=== PATIENT | female | born 1970 | race Caucasian/White ===

== ENCOUNTER → 2024-01-22 08:23 | Outpatient (BNVA) | payer MEDICARE, MEDICAID, SELFPAY | PROVIDERS: Family Provider Surgery Plastic and Reconstructive Surgery; Visit Provider Student in an Organized Health Care Education/Training Program | DX: K46.9 Unspecified abdominal hernia without obstruction or gangrene (principal) | CPT/HCPCS: 99204 ==

== ENCOUNTER 2024-02-05 08:54 | Outpatient (CLI) | payer MEDICARE, MEDICAID, SELFPAY ==
--- NOTE | 2024-02-05 09:00 | CT_ITS ---
WS: [id number] CT ABDOMEN AND PELVIS WITH CONTRAST HISTORY: hernia TECHNIQUE: Imaging performed of the abdomen and pelvis with IV contrast. Single phase imaging of the abdomen. Coronal and sagittal reformats are submitted. All CT scans at [facility] use at [address] one of these dose optimization techniques: automated exposure control; mA and/or kV adjustment per patient size (includes targeted exams where dose is matched to clinical indication); or iterative re construction. IV CONTRAST: Omnipaque 350; 100 mL IV. Oral contrast: No DLP: 549.29 mGy.cm COMPARISON: 07/05/2015 Lower thorax: Lung bases are clear. Posterior RIGHT diaphragmatic hernia contains fat only. Heart is normal size. No hiatal hernia. Liver/biliary system: Normal size liver. There are 2 low-attenuation masses within the liver which ca nnot be further characterized. These were not present on the prior study and limited otherwise by jackie athing motion artifact. Suspect cysts or hemangiomas. Gallbladder: Normal. No gallstones or wall thickening. No pericholecystic fluid. Pancreas: Normal size pancreas and pancreatic duct. No adjacent inflammation. Spleen: Normal size spleen. No mass or infarct. Adrenal glands: Normal. Right kidney: Normal size kidney. Focal cortical scar posterior upper pole. No obstruction. Left kidney: Normal. Aorta: Normal. Lymphadenopathy: None. Free fluid: None. GI tract: Nondistended stomach. No small bowel obstruction. Mild diffuse constipation. No appendiciti s. Abdominal wall: Numerous ventral abdominal wall hernias are identified. The largest hernia is at the level of the umbilicus and just to the RIGHT of the umbilicus. The orifice of the hernia has increase d since the prior CT now measures 3.6 cm. Herniating omental fat only. There is an additional smaller hernia containing omentum just superior to the larger hernia. There are multiple tiny defects along the supraumbilical of the central abdominal wall containing omentum only consistent with very small h ernias. 3 additional ventral abdominal wall hernias are identified. Pelvis: No free fluid or adenopathy within the pelvis. Normal-appearing uterus and ovaries. Bones: Unremarkable. CT/CT abdomen pelvis w con* [id number] IMPRESSION: 1. RIGHT periumbilical abdominal wall hernia contains omental fat. Orifice 3.6 cm. 2. Additional, midline and supraumbilical smaller hernias containing omental f at only. At least 3 additional hernias are identified. 3. No renal obstruction. 4. Two Hypodensities within the liver. These may be small hemangiomas or comp marian cysts. Too small to characterize.
[2024-02-05] MEDS: iohexol 350 mg/mL 500 mL Btl (per mL) IV (09:05)
== END 2024-02-05 08:55 | disposition home or self-care (01) ==
LOC: RAD 08:55
PROVIDERS: Family Provider Surgery Plastic and Reconstructive Surgery; Visit Provider Student in an Organized Health Care Education/Training Program
DX: K42.9 Umbilical hernia without obstruction or gangrene (principal); R93.2 Abnormal findings on diagnostic imaging of liver and biliary tract
CPT/HCPCS: 74177

== ENCOUNTER → 2024-02-16 08:40 | Outpatient (BNVA) | payer MEDICARE, MEDICAID, SELFPAY | PROVIDERS: Family Provider Surgery Plastic and Reconstructive Surgery; Visit Provider Student in an Organized Health Care Education/Training Program | DX: Z09 Encounter for follow-up examination after completed treatment for conditions other than malignant neoplasm (principal) | CPT/HCPCS: 99204; 99213 ==